=== PATIENT | male | born 1945 | race Caucasian/White ===

== ENCOUNTER 2017-12-25 07:32 | Outpatient (CLI) | payer MEDICARE, OTHER ==
[~2017-12-25] VITALS: Ht 188 cm; Wt 100.0 kg
--- NOTE | ~2017-12-25 | HEMODYNAMI ---
PATIENT:KINDRA PEREZ MEDICAL RECORD: [id number] : 47 LOCATION:DY[facility]iraCAT ADMISSION DATE: 12/25/17 Generatedon:12/25/20179:35 Patient name: KINDRA PEREZ Patient #: [id number] SSN: : 1945 Date of study: 12/25/2017 Page: Of Hemodynamic Procedure Report Patient Data Patient Demographics Procedure consent was obtained First Name: KINDRA Gender: Male Last Name: ANA : 1945 Middle Initial: ABILIO Age: 72 year(s) Patient #: [id number] Race: Unknown Additional ID: [id number] Contact details Address: [address] [place] [address] DRIVE [place]: [place] [facility] Zip code: [address] Past Medical History Allergies: No known allergies Admission Admission Data Admission Date: 12/25/2017 Admission Time: 7:32 Height (in.): 6.2 BSA: 0.38 (m2) Height (cm.): 15.75 BMI: 4115.26 (kg/m2) Weight (lbs.): 225 Weight (kg.): 102.06 Procedure Procedure Types Cath Procedure Diagnostic Procedure C [facility] w/Coronaries FFR/IVUS Intra-Coronary IVUS Initial Sedation Charges Moderate Sedation up to 15 minutes PCI Procedure Coronary Stent Coronary Stent Initial Procedure Description Procedure Date Procedure Date: 12/25/2017 Procedure Start Time: 9:09 Procedure End Time: 9:32 Procedure Staff Name Function Scooter Plata MD Performing Physician Nikki Monroy RT Monitor Chalo Sevilla RT Scrub Phil Mckeon RN Nurse Procedure Data Cath Procedure Fluoroscopy Diagnostic fluoroscopy Total fluoroscopy Time: 8.8 time: 8.8 min min Diagnostic fluoroscopy Total fluoroscopy dose: dose: 1546 mGy 1546 mGy Contrast Material Contrast Material Type Amount (ml) Isovue 370 121 Entry Location Entry Primary Successful Side Size Upsize Upsize Entry Closure Barrera ccessful Closure Location (Fr) 1 (Fr) 2 (Fr) Remarks Device Remarks Radial Right 6 Fr Mechanical artery Short Compression Estimated blood loss: 10 ml Diagnostic catheters Device Type Used For End Catheter Placement DIAGNOSTIC [place] 110cm 5 Procedure Fr catheter ([id number]) Procedure Complications No complications Procedure Medications Medication Administration Route Dosage 0.9% NaCl I.V. 100 ml/hr Oxygen etCO2 Nasal cannula 2 l/min Heparin Flush Bag added to field 2 bags (1000units/500ml NS) Lidocaine 2% added to field 20 Radial Cocktail added to field 1 syringe (Verapomil 2mg/Nitro 400mcg/Heparin 1500units) Versed I.V. 2 mg Fentanyl I.V. 100 mcg Heparin Bolus I.V. 4000 units Hemodynamics Rest BSA: 0.38 (m2) O2 Consumption: Estimated: 41.79 (ml/min) O2 Consumption indexed: Estimated:109.97 (ml/min/m) Heart Rate: 55 (bpm) Snapshots Pre Cath Intra NCS Post Cath Vital Signs Time Heart Resp SPO2 etCO2 NIBP Rhythm Pain Sedation Rate (ipm) (%) (mmHg) (mmHg) Status Level (bpm) 9:04:26 55 19 97 35.4 126/82(99) NSR 0 (11) 10(A) , No pain 9:09:02 57 17 96 36.1 114/76(95) NSR 0 (11) 10(A) , No pain 9:13:37 63 18 92 33.1 103/68(82) NSR 0 (11) 10(A) , No pain 9:18:09 61 14 97 16.5 107/64(80) NSR 0 (11) 10(A) , No pain 9:22:46 55 13 96 35.3 97/60(73) NSR 0 (11) 10(A) , No pain 9:27:18 53 14 98 36.1 102/60(76) NSR 0 (11) 10(A) , No pain 9:31:52 55 19 98 27 103/65(83) NSR 0 (11) 10(A) , No pain Medications Time Medication Route Dose Verified Delivered Reason Note s Effectiveness by by 9:02:54 0.9% NaCl I.V. 100 Phil Phil Per physician ml/hr Mike Mckeon RN RN 9:03:04 Oxygen etCO2 2 l/min Phil Phil Per physician Nasal Mike Mckeon cannula RN RN 9:03:14 Heparin Flush added 2 bags Phil Phil used for Bag to Mike Mckeon procedure (1000units/500ml field RN RN NS) 9:03:25 Lidocaine 2% added 20ml Phil Phil for local to vial Lorigan Mike anesthetic field RN RN 9:03:35 Radial Cocktail added 1 Phil Phil used for (Verapomil to syringe Lorjude Mckeon procedure 2mg/Nitro field RN RN 400mcg/Heparin 1500units) 9:07:29 Versed I.V. 2 mg Phil Phil for sedation Mike Mckeon RN RN 9:07:36 Fentanyl I.V. 100 mcg Phil Phil for sedation Mike Mckeon RN RN 9:16:52 Heparin Bolus I.V. 4000 Phil Phil for units Felipaigan Mike anticoagulation RN salt refiner Log Time Note 8:45:12 Signed procedure consent form obtained from patient. 8:45:15 Time tracking: Regular hours (M-F 7:00 - 5:00) 8:45:20 Plan of Care:Hemodynamics will remain stable., Cardiac rhythm will remain stable., Comfort level will be maintained., Respiratory function will remain adequate., Patient/ family verbilizes understanding of procedure., Procedure tolerated without complication., Recovers from procedure without complications.. 8:46:02 Patient allergic to No known allergies 8:46:34 Phil Mckeon RN sent for patient. Start room use. 8:48:10 Patient Height : 6.2 inches 8:48:12 Patient Weight : 225 lbs 8:51:47 Patient received from Pre/Post Procedure Room to CCL 1 Alert and oriented. Tansferred to table in Supine position. 8:51:48 Warm blankets applied, and mara hugger turned on for patient comfort. 8:51:48 Correct patient and procedure confirmed by team. 8:51:49 ECG and BP/O2 sat monitors applied to patient. 9:02:54 0.9% NaCl 100 ml/hr I.V. was administered by Phil Mckeon RN; Per physician; 9:03:04 Oxygen 2 l/min etCO2 Nasal cannula was administered by Phil Mckeon RN; Per physician; 9:03:14 Heparin Flush Bag (1000units/500ml NS) 2 bags added to field was administered by Phil Mckeon RN; used for procedure; 9:03:25 Lidocaine 2% 20ml vial added to field was administered by Phil Mckeon RN; for local anesthetic; 9:03:35 Radial Cocktail (Verapomil 2mg/Nitro 400mcg/Heparin 1500units) 1 syringe added to field was administered by Phil Mckeon RN; used for procedure; 9:03:40 Vital chart was started 9:05:50 Baseline sample Acquired. 9:05:53 Rhythm: sinus bradycardia 9:05:54 Full Disclosure recording started 9:06:03 H&P Date Dictated: 12/02/2017 Within 30 days and on chart., H&P Addendum completed by physician on day of procedure. (MUST COMPLETE FOR ALL OUTPATIENTS). 9:06:03 Pre-procedure instructions explained to patient. 9:06:04 Pre-procedure instructions explained to patient. 9:06:04 Pre-op teaching completed and patient verbalized understanding. 9:06:06 Family in patients room. 9:06:08 Is the patient allergic to Iodine/contrast media? No. 9:06:11 Is patient on blood thinner?Yes 9:06:13 ACC The patient was administered the following blood thiners within the last 24 hours: ACCPlavix 9:06:15 Patient diabetic? No. 9:06:18 Previous problem with sedation/anesthesia? No ? 9:06:19 Snore? Yes 9:06:20 Sleep apnea? No 9:06:21 Deviated septum? No 9:06:22 Opens mouth fully? Yes 9:06:22 Sticks out tongue? Yes 9:06:24 Airway obstruction? No ? 9:06:27 Dentures? No ? 9:06:31 Modified Silvino's test Ulnar < 7 seconds 9:06:32 Patient pain scale 0/10 ?. 9:06:51 IV patent on arrival in left wrist with 0.9% NaCl at KVO. 9:06:59 Right Radial & Right Groin area was prepped with chlora-prep and draped in sterile fashion 9:07:00 Alarms reviewed by Eloise Mauro 9:07:00 Sharps counted by scrub and verified by Keke 9:07:01 --------ALL STOP TIME OUT------ 9:07:01 Final Timeout: patient, procedure, and site verified with staff and physician. All members of the team are in agreement. 9:07:04 Right Radial & Right Groin site verified by team. 9:07:07 Physical assessment completed. ASA score P 2 - A patient with mild systemic disease as per Scooter Plata MD. 9:07:09 Sedation plan: IV Moderate Sedation Medication:Versed, Fentanyl 9:07:23 Zero performed for pressure channel P1 9:07:27 Use device set Radial Dx or PCI 9:07:28 ACIST Syringe (67135) opened to sterile field. 9:07:29 Versed 2 mg I.V. was administered by Phil Mckeon RN; for sedation; 9:07:29 ACIST Hand Control (02919) opened to sterile field. 9:07:30 ACIST Manifold (27038) opened to sterile field. 9:07:35 Bag Decanter (2002S) opened to sterile field. 9:07:36 Fentanyl 100 mcg I.V. was administered by Phil Mckeon RN; for sedation; 9:07:36 Medline Cath Pack ([id number]) opened to sterile field. 9:07:37 DIAGNOSTIC WIRE .035 260cm J wire (332845) opened to sterile field. 9:07:38 MBrace Wrist Support ([id number]) opened to sterile field. 9:07:40 SHEATH 6Fr Prelude Radial ([id number]) opened to sterile field. 9:09:27 Tegaderm 4 x 4 (1626W) opened to sterile field. 9:09:35 Procedure started. 9:09:43 Local anesthetic to right radial artery with Lidocaine 2% by Scooter Plata MD.INITIAL ACCESS ONLY 9:10:57 A 6 Fr Short sheath was inserted into the Right Radial artery 9:11:03 A DIAGNOSTIC [place] 110cm 5 Fr catheter (273337) was advanced over the wire and used for Procedure. 9:11:49 LV gram done using NORIEGA 9:11:51 Injector settings: Ml/sec: 7, Volume: 15, 9:12:24 EF : 60 % 9:13:52 RCA angiography performed. 9:13:55 LCA angiography performed. 9:14:07 Catheter exchanged over wire. 9:14:12 INFLATOR Merit Tumbiepak (GZ2982) opened to sterile field. 9:14:20 CHOICE PT Extra Support J 300cm guide wire (1123859I9) opened to sterile field. 9:16:07 GUIDE 6FR AR 2.0 catheter (RH8UN16) opened to sterile field. 9:16:17 6 Fr AR2 guide catheter was inserted over the wire 9:16:48 CHOICE ES 300 wire advanced. 9:16:52 Heparin Bolus 4000 units I.V. was administered by Phil Mckeon RN; for anticoagulation; 9:21:42 Wire removed. 9:21:51 NEW CHOICE ES 300 9:21:54 CHOICE PT Extra Support J 300cm guide wire ([id number]) opened to sterile field. 9:22:09 CHOICE ES 300 wire advanced. 9:25:37 The EMERGE OTW 1.5 x 15 balloon ([id number]) was advanced and then removed because of failure to cross lesion 9:25:45 [place] IVUS Catheter (91541K) opened to sterile field. 9:27:19 IVUS catheter advanced over wire. 9:27:29 IVUS pass to RCA lesion performed. 9:27:33 IVUS catheter removed over wire. 9:28:39 Place stent Inflation Number: 1 A AJ OTW 3.5 x 38 stent ([id number]) was prepped and advanced across the Dist RCA. The stent was deployed at 19 JEFFREY for 0:10 (min:sec). 9:29:11 Stent catheter was removed intact over wire. 9:29:12 Wire removed. 9:29:13 Guide catheter removed. 9:29:31 TR BAND Standard ([id number]) opened to sterile field. 9:29:36 Procedure ended.(Physican Out) 9:31:01 Sheath removed intact; hemostasis achieved with Mechanical Compression to the Right Radial artery. 9:31:06 Fluoroscopy time 08.80 minutes. 9:31:10 Fluoroscopy dose: 1546 mGy 9:31:10 Flurop Dose total: 1546 9:31:14 Contrast amount:Isovue 370 121ml. 9:31:16 Sharps counted by scrub and verified by R.N. 9:31:18 TR band inflated with 10cc of air. 9:31:22 Post-procedure physical assessment completed. ASA score P 2 - A patient with mild systemic disease as per Scooter Plata MD. 9:31:25 Post procedure rhythm: unchanged. 9:31:27 Estimated blood loss: 10 ml 9:31:29 Post procedure instruction explained to patient.Patient verbalizes understanding. 9:31:29 Patient needs reinforcement of post procedure teaching. 9:32:14 Procedure type changed to Cath procedure, Diagnostic procedure, LHC, LHC w/Coronaries, FFR/IVUS, Intra-Coronary IVUS Initial, Sedation Charges, Moderate Sedation up to 15 minutes, PCI procedure, Coronary Stent, Coronary Stent Initial 9:32:41 Procedure and supply charges have been captured, reviewed, submitted and are correct. 9:32:43 Procedure Complication : No complications 9:32:46 Vital chart was stopped 9:32:46 See physician's report for complete and final results. 9:32:48 Report given to Pre/Post Procedure Room. 9:32:50 Patient transfered to Pre/Post Procedure Room with Bed. 9:32:52 Procedure ended. 9:32:52 Full Disclosure recording stopped 9:32:57 End room use (Document Last) Intervention Summary Intervention Notes Time ActionType Lesion and Equipment Action# Pressure Duration Attributes Used 9:25:37 Discard EMERGE OTW Balloon 1.5 x 15 balloon ([id number]) 9:28:39 Place stent Dist RCA AJ OTW 3.5 1 19 00:10 x 38 stent ([id number]) Device Usage Item Name Manufacture Quantity Catalog Number Hospital Part Current Minimal Lot# / Charge Number Stock Stock Serial# Code ACIST Syringe Acist 1 96758 795375 232490 401169 20 (42432) Medical Systems Inc ACIST Hand Acist 1 66446 945181 906663 930829 5 Control (23396) [employer] Inc ACIST Manifold Acist 1 25864 549878 678619 739429 5 (49423) Medical Systems Inc Bag Decanter Microtek 1 2001S 214666 30629 246513 5 (2001S) Medical Inc. Medline Cath Cardinal 1 [id number] 919562 29104 697276 5 [facility] ([id number]) DIAGNOSTIC WIRE St Blu 1 916814 812234 482453 649726 30 .035 260cm J wire (855728) MBrace Wrist Advanced 1 140-0250-00 212610 63288 330562 5 Support Vascular ([id number]) Dynamics SHEATH 6Fr Merit 1 [id number] 088666 373593 311431 5 Prelude Radial Medical ([id number]) Tegaderm 4 x 4 3M 1 1626W 918088 848876 104425 5 (1626W) DIAGNOSTIC Terumo 1 405013 532058 637691 235239 5 [place] 110cm 5 Fr catheter (460720) INFLATOR Merit Merit 1 NT2395 624744 142771 701708 15 BasixEverlaterinTimetric Medical (EI8993) CHOICE PT Extra [place] 2 [id number] 919024 441275 825183 5 Support J 300cm Scientific guide wire (2388590V3) GUIDE 6FR AR Medtronic 1 [id number] 196405 47739 239489 1 2.0 catheter (VZ0IF62) EMERGE OTW 1.5 [place] 1 [id number] 213177 691752 640526 5 [id number] x 15 balloon Scientific ([id number]) [place] 1 90981D 323926 124859 907858 8 [place] IVUS Catheter (99095D) AJ OTW 3.5 x Medtronic 1 [id number] 559983 0845313 511881 5 [id number] 38 stent ([id number]) TR BAND Terumo 1 [id number] 134554 859945 484530 40 Standard ([id number]) Signature Audit [place] Stage Time Signature Unsigned Intra-Procedure 12/25/2017 Nikki Monroy 9:35:23 AM RT(R) Signatures Monitor : Nikki Monroy Signature : RT Date : Time : [facility] [address] [place] [address]
--- NOTE | ~2017-12-25 | OP ---
PATIENT NAME: KINDRA PEREZ MEDICAL RECORD: [id number] :47 LOCATION:D.CAT ADMISSION DATE: SURGEON: KULDIP YOUNG MD DATE OF OPERATION: 12/25/2017 PROCEDURES: 1. PTCA stent RCA. 2. Intravascular ultrasound RCA. 3. Left heart catheterization. 4. Selective coronary angiography. 5. Left ventriculogram. INDICATION: Angina and coronary artery disease. PROCEDURE IN DETAIL: After informed consent was obtained and after a detailed explanation of risks, benefits as well as alternative therapies, the patient elected to proceed with angiogram and angioplasty. The right radial area was prepped and draped in normal sterile fashion. Right radial artery was cannulated via modified Seldinger technique with placement of 6-Malay sheath. All catheters exchanged through this sheath. FINDINGS: The left ventriculogram was performed in standard 30-degree NORIEGA view reveals preserved cardiac wall motion, ejection fraction 50%. SELECTIVE CORONARY ANGIOGRAPHY: 1. Left main has no significant angiographic disease. 2. Left anterior descending has a long area of 80+ percent stenosis proximally. 3. The left circumflex has moderate irregularities. 4. The right coronary artery has a greater than 70% stenosis throughout the mid distal portion of the vessel confirmed by intravascular ultrasound. The PLV is a chronic total occlusion. PTCA STENT OF THE RCA. We attempted to cross the PLV total occlusion; however, no wire would cross this. We turned our attention to the distal RCA and stented this with a 3.5 x 38 mm [place] stent. Result was 0% residual stenosis. OVERALL IMPRESSION: Successful percutaneous transluminal coronary angioplasty stent of the right coronary artery going from greater than 70% initial stenosis to 0% residual. PLAN: PTCA stent of the LAD in the near future. TRANSINT:[id number] Voice Confirmation ID: [id number] DOCUMENT ID: [id number] KULDIP YOUNG MD at 1218 CC: [id number] DICTATION DATE: 12/25/17 0933 DIGITAL ASSOCIATE MEDIA DIRECTOR: 12/25/17 1241 DEP CLI 12/25/17 [address] [place] [address]
[2017-12-25] MEDS ORDERED: PLAVIX75 MG PO (08:01)
[2017-12-25] MEDS ORDERED: DIOVAN HCT 320/1 TA2 PO (08:02)
[2017-12-25 08:12] VITALS: BP 140/84; Ht 188 cm; Wt 100.0 kg
[2017-12-25 08:33] LABS: BASOPHILS 0.2 % (0-2); EOSINOPHILS 4.4 % (0-7); HEMATOCRIT 34.5 % (42.0-54.0); HEMOGLOBIN 12.2 g/dL (13.5-17.5); IMMATURE GRANULOCYTES 0.2 % (0-5); LYMPHOCYTES 23.1 % (15-50); MCH 33.4 pg (26.0-34.0); MCHC 35.4 g/dL (31.0-37.0); MCV 94.5 fL (80.0-100.0); MEAN PLATELET VOLUME 9.9 fL (7.4-10.4); MONOCYTES 7.5 % (2-11); NEUTROPHILS 64.6 % (40-80); PLATELET COUNT 184 10x3/uL (130-400); RBC 3.65 10x6/uL (4.20-6.10); RDW 13.1 % (11.5-14.5); WBC 5.5 10x3/uL (4.8-10.8)
[2017-12-25 09:06] LABS: CALC OSMOLALITY 280 mosm/kg (275-300); CALCIUM 9.2 mg/dL (8.5-10.1); CARBON DIOXIDE 28.4 mmol/L (21.0-32.0); CHLORIDE - SERUM 103 mmol/L (98-107); GLUCOSE 97 mg/dL (74-106); POTASSIUM - SERUM 3.7 mmol/L (3.5-5.1); SODIUM 139 mmol/L (136-145); UREA NITROGEN 22 mg/dL (7-18); eGFR NON AFRICAN AMERICAN 78 mL/min (90-120)
[2017-12-25] MEDS ORDERED: BAYER CHEWABLE81 MG PO (09:41)
== END 2017-12-25 13:30 | disposition home or self-care (01) ==
LOC: D.CATH 07:32
PROVIDERS: Internal Medicine Interventional Cardiology
DX: I25.119 Atherosclerotic heart disease of native coronary artery with unspecified angina pectoris (principal); I25.82 Chronic total occlusion of coronary artery; Z01.812 Encounter for preprocedural laboratory examination
CPT/HCPCS: 93458; 92978; C9600

== ENCOUNTER 2017-12-27 07:28 | Outpatient (CLI) | payer MEDICARE, OTHER ==
[~2017-12-27] VITALS: Ht 188 cm; Wt 100.0 kg
--- NOTE | ~2017-12-27 | HP ---
PATIENT: KINDRA ACKERMAN MEDICAL RECORD: [id number] ACCOUNT: [id number] LOCATION:IAN : 47 ADMISSION DATE: 12/27/17 HISTORY AND PHYSICAL EXAMINATION DATE OF SERVICE: 12/27/2017. INDICATION: 1. Angina. 2. Coronary artery disease. 3. Recent percutaneous transluminal coronary angioplasty stent of the right coronary artery with concomitant disease, LAD. 4. Hypertension. 5. Hyperlipidemia. HISTORY OF PRESENT ILLNESS: Mr. Ackerman presents with anginal symptomatology, found to have severe 2-vessel coronary artery disease of the RCA and LAD, underwent successful PTCA stent of the RCA. He is now brought back for transcatheter revascularization of the LAD. REVIEW OF SYSTEMS: The patient reports easy bruising but reports no swollen glands. The patient reports no fever, no night sweats, no significant weight gain, no significant weight loss. No significant exercise tolerance. The patient reports no dry eyes, no irritation, no vision change. Patient reports no difficulty hearing and no ear pain. Patient reports no frequent nose bleeds or nose and sinus problems. Patient reports on arm pain on exertion. No shortness of breath while lying down. No history of heart murmur. Patient reports no cough, no wheezing or coughing up blood. Patient reports no abdominal pain, no vomiting. Normal appetite. No diarrhea and not vomiting blood. No nausea and no constipation. Patient reports no incontinence. No difficulty urinating. No hematuria. No increased frequency. Patient reports no muscle aches. No weakness, no arthralgias, no back pain. No swelling of the extremities. Patient reports no abnormal mole, no jaundice, no rashes. Reports no loss of consciousness. No weakness and no numbness. No seizures, dizziness, or headaches. The patient reports no depression, no sleep disturbance, feeling safe in a relationship and no alcohol abuse. Patient reports on fatigue. Reports no runny nose or sinus pressure. No itching, no hives, and no frequent sneezing. PHYSICAL EXAMINATION: GENERAL APPEARANCE: Well-nourished, well-developed, appears stated age. Level of distress, comfortable. PSYCHIATRIC: Mental status, alert, normal affect. Orientation, oriented to time, place and person. EYES: Lids and conjunctiva, noninjected. No discharge, no pallor. ENT: Lips, teeth, gums, normal dentition. Oropharynx, no cyanosis, no pallor. NECK: Carotid arteries, bilateral normal upstroke, no bruits, no thrills. JUGULAR VEINS: No jugular venous pressure or distention. CERVICAL LYMPH NODES: Nontender, nonenlarged. THYROID: Not enlarged. Nontender. No nodules. LUNGS: Respiratory effort, unlabored. CHEST: Normal curvature. No thoracic deformity. No chest wall tenderness. Percussion, resonant. Auscultation, clear. No wheezes, no rales, no rhonchi. CARDIOVASCULAR: Precordial exam, nondisplaced. No heaves or pericardial thrills. Rate and rhythm, regular. Heart sounds, normal S1, normal S2. No S3, HISTORY AND PHYSICAL [id number] KINDRA ACKERMAN no gallop, no rub. Systolic murmur, not heard. Diastolic murmur, not heard. EXTREMITIES: No cyanosis, no edema. Peripheral pulses, full and equal in all extremities, except as noted. No bruits appreciated. ABDOMEN: Soft, nondistended. Normal aorta. No bruit. Nontender. No masses. Liver, nontender, no hepatomegaly. Spleen, nontender, no splenomegaly. MUSCULOSKELETAL: No joint tenderness. No joint swelling. No erythema. NEUROLOGICAL: Normal gait, normal strength, normal tone. SKIN: Warm and dry. OVERALL IMPRESSION: Anginal symptomatology with significant disease of the left anterior descending. We will proceed with percutaneous transluminal coronary angioplasty stent of the LAD. TRANSINT:[id number] Voice Confirmation ID: [id number] DOCUMENT ID: [id number] KULDIP YOUNG MD at 1711 CC: [id number] DICTATION DATE: 12/27/17 1019 POWDER EXPERT: 12/27/17 1057 DEP CLI 12/27/17 [place] [id number] [place] [address]
--- NOTE | ~2017-12-27 | OP ---
PATIENT NAME: KINDRA PEREZ MEDICAL RECORD: [id number] :47 LOCATION:D.CAT ADMISSION DATE: SURGEON: KULDIP YOUNG MD DATE OF OPERATION: 12/27/2017 PROCEDURES: 1. PTCA stent LAD. 2. Selective coronary angiography. INDICATION: Angina and coronary artery disease. PROCEDURE IN DETAIL: After informed consent was obtained and after a detailed description of risks, benefits as well as alternative therapies, the patient elected to proceed with angiogram and angioplasty. The right radial area was prepped and draped in a normal sterile fashion. Right radial artery was cannulated via modified Seldinger technique with placement of 6-[place]zer[place] sheath. All catheters exchanged through this sheath. FINDINGS: The left anterior descending has 80+ percent stenosis proximally. 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 This is not a true lesion. The proximal vessel was addressed with a 3.5 x 22 mm [place] taken to 21 atmospheres. Result was 0% residual stenosis. OVERALL IMPRESSION: Successful percutaneous transluminal coronary angioplasty stent of the left anterior descending going from 80+ percent initial stenosis to 0% residual. TRANSINT:[id number] Voice Confirmation ID: [id number] DOCUMENT ID: [id number] KULDIP YOUNG MD at 1711 CC: [id number] DICTATION DATE: 12/27/17 1020 EXPLOSIVES WORKER: 12/27/17 1111 DEP CLI 12/27/17 [facility] [address] [place] [address]
--- NOTE | ~2017-12-27 | HEMODYNAMI ---
PATIENT:KINDRA PEREZ MEDICAL RECORD: [id number] : 47 LOCATION:[facility] ADMISSION DATE: 12/27/17 Generatedon:12/27/201710:24 Patient name: KINDRA PEREZ Patient #: [id number] : 1945 Date of study: 12/27/2017 Page: Of Hemodynamic Procedure Report Patient Data Patient Demographics Procedure consent was obtained First Name: KINDRA Gender: Male Last Name: ANA : 1945 [facility] Initial: R Age: 72 year(s) Patient #: [id number] Race: SSN: [id number] Additional ID: [id number] Contact details [address]: [address] [place] [address] [address]IVE State: [place] City: [place] Zip code: [address] Past Medical History Allergies: No known allergies Admission Admission Data Admission Date: 12/27/2017 Admission Time: 7:28 Arrival Date: 12/20/2017 Arrival Time: 9:30 Admit Source: Other Insurance Payor: Medicare Lab Results Lab Result Date: 12/27/2017 Lab Result Time: 0:00 Biochemistry Name Units Result Min Max BUN mg/dl 16 --(---*)-- 7 18 Creatinine mg/dl 1.1 --(--*-)-- 0.6 1.3 CBC Name Units Result Min Max Hemoglobin g/dl 13.1 -*(----)-- 13.5 17.5 Procedure Procedure Types Cath Procedure PCI Procedure Coronary Stent Coronary Stent Initial Procedure Description Procedure Date Procedure Date: 12/27/2017 Procedure Start Time: 10:10 Procedure End Time: 10:19 Procedure Staff Name Function Scooter Plata MD Performing Physician Keyla Felix RT Monitor Janessa Hightower RT Scrub Israel Hinton RN Nurse Procedure Data Cath Procedure Fluoroscopy Diagnostic fluoroscopy Total fluoroscopy Time: 1.4 time: 1.4 min min Diagnostic fluoroscopy Total fluoroscopy dose: 197 dose: 197 mGy mGy Contrast Material Contrast Material Type Amount (ml) Isovue 300 30 Entry Location Entry Primary Successful Side Size Upsize Upsize Entry Closure Barrera ccessful Closure Location (Fr) 1 (Fr) 2 (Fr) Remarks Device Remarks Radial Right 6 Fr Mechanical artery Short Compression Estimated blood loss: 5 ml Procedure Complications No complications Procedure Medications Medication Administration Route Dosage Oxygen NC 2 l/min Lidocaine 2% added to field 20 Heparin Flush Bag added to field 2 bags (1000units/500ml NS) 0.9% NaCl I.V. 100 ml/hr Radial Cocktail I.A. 1 syringe (Verapomil 2mg/Nitro 400mcg/Heparin 1500units) Versed I.V. 1 mg Fentanyl I.V. 50 mcg Heparin Bolus I.V. 4000 units Versed I.V. 1 mg Fentanyl I.V. 50 mcg Hemodynamics Rest HGB: 13.1 (g/dl) Heart Rate: 59 (bpm) Snapshots Pre Cath Intra NCS Post Cath Vital Signs Time Heart Resp SPO2 etCO2 NIBP Rhythm Pain Sedation Rate (ipm) (%) (mmHg) (mmHg) Status Level (bpm) 10:01:35 58 14 96 20.2 122/85(98) NSR 0 (11) 10(A) , No pain 10:05:41 58 15 98 32.2 114/81(96) NSR 0 (11) 10(A) , No pain 10:09:49 57 14 96 26.9 115/71(86) NSR 0 (11) 10(A) , No pain 10:14:01 64 13 94 29.2 102/62(80) NSR 0 (11) 9(A) , No pain 10:18:05 65 15 95 23.2 91/63(73) NSR 0 (11) 9(A) , No pain 10:22:14 60 16 95 0 104/60(72) NSR 0 (11) 10(A) , No pain Medications Time Medication Route Dose Verified Delivered Reason Note s Effectiveness by by 10:08:41 Oxygen NC 2 l/min Scooter Wood used for Boni Hinton RN procedure 10:08:47 Lidocaine 2% added 20ml Scooter Helms used for to vial Boni Plata MD procedure field 10:08:53 Heparin Flush added 2 bags Scooter Helms used for Bag to Boni Plata MD procedure (1000units/500ml field NS) 10:09:01 0.9% NaCl I.V. 100 Scooter Wood Per physician ml/hr Boni Hinton RN 10:09:12 Radial Cocktail I.A. 1 Scooter Helms for (Verapomil syringe Boni Plata MD vasodilation 2mg/Nitro 400mcg/Heparin 1500units) 10:11:24 Versed I.V. 1 mg Scooter Wood for sedation Boni Hinton RN 10:11:30 Fentanyl I.V. 50 mcg Scooter Bluntie for sedation Boni Hinton RN 10:13:45 Heparin Bolus I.V. 4000 Scooter Bluntie for veri fied units Boni Hinton RN anticoagulation with dr plata 10:15:56 Versed I.V. 1 mg Scooter Bluntie for sedation Boni Hinton RN 10:16:00 Fentanyl I.V. 50 mcg Scooter Bluntie for sedation Boni Hinton RN Procedure Log Time Note 9:42:15 Informed consent obtained and on chart 9:42:32 Admit Source: Other 9:42:34 Arrival Date: 12/20/2017 9:30:00 AM 9:42:48 Insurance Payor : Medicare 9:44:07 Lab Result : Hemoglobin 13.1 g/dl 9:44:07 Lab Result : Creatinine 1.1 mg/dl 9:44:07 Lab Result : BUN 16 mg/dl 9:44:13 Diagnostic Cath Status : Elective 9:44:36 Janessa HANKS(R) sent for patient. Start room use. 9:44:37 Time tracking: Regular hours (M-F 7:00 - 5:00) 9:44:42 Plan of Care:Hemodynamics will remain stable., Cardiac rhythm will remain stable., Comfort level will be maintained., Respiratory function will remain adequate., Patient/ family verbilizes understanding of procedure., Procedure tolerated without complication., Recovers from procedure without complications.. 9:50:39 Patient received from Pre/Post Procedure Room to CCL 2 Alert and oriented. Tansferred to table in Supine position. 9:50:40 Warm blankets applied, and mara hugger turned on for patient comfort. 9:50:40 Correct patient and procedure confirmed by team. 9:50:41 ECG and BP/O2 sat monitors applied to patient. 10:00:29 Vital chart was started 10:00:31 Baseline sample Acquired. 10:00:34 Rhythm: sinus rhythm 10:00:36 Full Disclosure recording started 10:00:40 H&P Date Dictated: 12/27/2017 Within 30 days and on chart., H&P Addendum completed by physician on day of procedure. (MUST COMPLETE FOR ALL OUTPATIENTS). 10:00:41 Pre-procedure instructions explained to patient. 10:00:42 Pre-op teaching completed and patient verbalized understanding. 10:00:43 Family in waiting room. 10:00:45 Patient NPO since Midnight. 10:00:47 Is the patient allergic to Iodine/contrast media? No. 10:00:48 Was the patient premedicated? No 10:00:53 Is patient on blood thinner?Yes 10:00:55 ACC The patient was administered the following blood thiners within the last 24 hours: ACCPlavix 10:00:57 Patient diabetic? No. 10:01:02 Previous problem with sedation/anesthesia? No ? 10:01:04 Snore? Yes 10:01:05 Sleep apnea? No 10:01:06 Deviated septum? No 10:01:06 Opens mouth fully? Yes 10:01:07 Sticks out tongue? Yes 10:01:09 Airway obstruction? No ? 10:01:16 Dentures? No ? 10:01:23 Pre procedure: right dorsailis pedis pulse 2+ Normal; easily identifiable; not easily obliterated 10:01:25 Pre procedure: left dorsailis pedis pulse 1+ Palpable, but thready & weak; easily obliterated 10:01:31 Modified Silvino's test Radial < 7 seconds 10:01:33 Patient pain scale 0/10 ?. 10:01:42 IV patent on arrival in left forearm with 0.9% NaCl at KVO. 10:01:45 Lab results completed and on chart. 10:01:50 Right Radial & Right Groin area was prepped with chlora-prep and draped in sterile fashion 10:01:51 Alarms reviewed by R. N. 10:01:51 Sharps counted by scrub and verified by R.N. 10:08:41 Oxygen 2 l/min NC was administered by Israel Hinton RN; used for procedure; 10:08:47 Lidocaine 2% 20ml vial added to field was administered by Scooter Plata MD; used for procedure; 10:08:53 Heparin Flush Bag (1000units/500ml NS) 2 bags added to field was administered by Scooter Plata MD; used for procedure; 10:09:01 0.9% NaCl 100 ml/hr I.V. was administered by Israel Hinton RN; Per physician; 10:09:12 Radial Cocktail (Verapomil 2mg/Nitro 400mcg/Heparin 1500units) 1 syringe I.A. was administered by Scooter Plata MD; for vasodilation; 10::35 Physician arrived 10::35 --------ALL STOP TIME OUT------ 10::36 Final Timeout: patient, procedure, and site verified with staff and physician. All members of the team are in agreement. 10:09:38 Right Radial & Right Groin site verified by team. 10:09:40 Physical assessment completed. ASA score P 2 - A patient with mild systemic disease as per Scooter Plata MD. 10:09:44 Sedation plan: IV Moderate Sedation Medication:Versed, Fentanyl 10:09:56 Procedure started. 10:10:01 Local anesthetic to right radial artery with Lidocaine 2% by Scooter Plata MD.INITIAL ACCESS ONLY 10:10:09 A 6 Fr Short sheath was inserted into the Right Radial artery 10:10:38 Use device set Radial Dx or PCI 10:10:40 ACIST Syringe (54751) opened to sterile field. 10:10:40 Medline Cath Pack ([id number]) opened to sterile field. 10:10:41 Bag Decanter () opened to sterile field. 10:10:41 DIAGNOSTIC WIRE .035 260cm J wire (790271) opened to sterile field. 10:10:42 ACIST Hand Control (99144) opened to sterile field. 10:10:43 ACIST Manifold (08144) opened to sterile field. 10:10:44 Tegaderm 4 x 4 (1626W) opened to sterile field. 10:10:44 MBrace Wrist Support ([id number]) opened to sterile field. 10:10:46 TR BAND Standard ([id number]) opened to sterile field. 10:10:48 SHEATH 6Fr Prelude Radial ([id number]) opened to sterile field. 10:11:24 Versed 1 mg I.V. was administered by Israel Hinton RN; for sedation; 10:11:30 Fentanyl 50 mcg I.V. was administered by Israel Hinton RN; for sedation; 10:11:36 Zero performed for pressure channel P1 10:13:40 GUIDE 6FR XBLAD 3.5 catheter (13579123) opened to sterile field. 10:13:45 Heparin Bolus 4000 units I.V. was administered by Israel Hinton RN; for anticoagulation; verified with dr plata 10:13:56 6 Fr xblad 3.5 guide catheter was inserted over the wire 10:14:32 CHOICE PT Extra Support 182cm wire ([id number]) opened to sterile field. 10:15:12 INFLATOR Merit BasixCompak (KJ0404) opened to sterile field. 10:15:20 choice pt wire advanced. 10:15:22 Wire advanced across lesion. 10:15:56 Versed 1 mg I.V. was administered by Israle Hinton RN; for sedation; 10:16:00 Fentanyl 50 mcg I.V. was administered by Israel Hinton RN; for sedation; 10:16:54 Place stent Inflation Number: 1 A AJ RX 3.0 x 22 stent ([id number]) was prepped and advanced across the Prox LAD. The stent was deployed at 21 JEFFREY for 0:10 (min:sec). 10:17:07 Stent catheter was removed intact over wire. 10:17:07 Wire removed. 10:17:07 Guide catheter removed. 10:18:10 Sheath removed intact; hemostasis achieved with Mechanical Compression to the Right Radial artery. 10:18:11 Procedure ended.(Physican Out) 10:18:50 Fluoroscopy time 01.40 minutes. 10:18:54 Flurop Dose total: 197 10:18:54 Fluoroscopy dose: 197 mGy 10:18:58 Contrast amount:Isovue 300 30ml. 10:19:00 Sharps counted by scrub and verified by R.N. 10:19:03 TR band inflated with 10cc of air. 10:19:04 Insertion/operative site no bleeding no hematoma. 10:19:15 Post right radial artery:stable 10:19:21 Post Procedure Pulses reassessed and unchanged 10:19:24 Post procedure rhythm: sinus rhythm 10:19:27 Estimated blood loss: 5 ml 10:19:29 Post procedure instruction explained to patient.Patient verbalizes understanding. 10:19:29 Patient needs reinforcement of post procedure teaching. 10:19:35 Procedure type changed to Cath procedure, PCI procedure, Coronary Stent, Coronary Stent Initial 10:19:36 Procedure and supply charges have been captured, reviewed, submitted and are correct. 10:19:40 Procedure Complication : No complications 10:19:42 Vital chart was stopped 10:19:43 See physician's report for complete and final results. 10:19:45 Report given to Pre/Post Procedure Room. 10:19:47 Patient transfered to Pre/Post Procedure Room with Stretcher. 10:19:49 Procedure ended. 10:19:49 Full Disclosure recording stopped 10:19:58 ACC-PCI Only Patient was given prescriptions, or instructed by Scooter Plata MD to start/continue the following medications upon discharge: Plavix 10:20:00 End room use (Document Last) Intervention Summary Intervention Notes Time ActionType Lesion and Equipment Used Action# Pressure Duration Attributes 10:16:54 Place stent Prox LAD AJ RX 3.0 x 1 21 00:10 22 stent ([id number]) Device Usage Item Name Manufacture Quantity Catalog Number Hospital Part Current Minimal Lot# / Charge Number Stock Stock Serial# Code ACIST Syringe Acist 1 47482 145830 712533 820743 20 (66040) Medical [employer] Medline Cath Cardinal 1 [id number] 919581 29518 746106 5 Pack Health ([id number]) Bag Decanter Microtek 1 2001S 325803 37687 765309 5 () Medical Inc. DIAGNOSTIC WIRE St Blu 1 983025 266167 616127 145010 30 .035 260cm J wire (417108) ACIST Hand Acist 1 76819 056783 965833 528302 5 Control (64975) Medical [employer] Inc ACIST Manifold Acist 1 30955 696769 974999 856497 5 (55310) Medical Systems Inc Tegaderm 4 x 4 3M 1 1626W 989991 361743 592265 5 (1626W) MBrace Wrist Advanced 1 140-0250-00 992675 16805 366664 5 Support Vascular ([id number]) Dynamics TR BAND Terumo 1 [id number] 196837 520352 837797 40 Standard ([id number]) SHEATH 6Fr Merit 1 [id number] 002857 506664 483694 5 Prelude Radial Medical ([id number]) GUIDE 6FR XBLAD Cardinal 1 [id number] 180964 294516 014571 10 3.5 catheter Health (30548260) CHOICE PT Extra Frohna 1 [id number] 490324 934787 649723 5 Support 182cm Scientific wire ([id number]) INFLATOR Merit Merit 1 NT0060 215408 902125 673582 15 BasixComwvMiniLuxe Medical ([id number]) AJ RX 3.0 x Medtronic 1 [id number] 317042 9261565 137940 5 [id number] 22 stent ([id number]) Signature Audit [place] Time Signature Unsigned Intra-Procedure 12/27/2017 Keyla Felix 10:24:45 AM RT(R) Signatures Monitor : Keyla Felix RT Signature : Date : Time : [place] [id number] [place], S[place] [id number]
[~2017-12-27 07:28] MED LIST: BAYER CHEWABLE81 MG PO; DIOVAN HCT 320/1 TA2 PO; PLAVIX75 MG PO
[2017-12-27 08:18] LABS: BASOPHILS 0.2 % (0-2); EOSINOPHILS 3.5 % (0-7); HEMATOCRIT 37.5 % (42.0-54.0); HEMOGLOBIN 13.1 g/dL (13.5-17.5); IMMATURE GRANULOCYTES 0.2 % (0-5); LYMPHOCYTES 22.8 % (15-50); MCH 33.2 pg (26.0-34.0); MCHC 34.9 g/dL (31.0-37.0); MCV 94.9 fL (80.0-100.0); MONOCYTES 6.3 % (2-11); PLATELET COUNT 181 10x3/uL (130-400); RBC 3.95 10x6/uL (4.20-6.10); RDW 12.9 % (11.5-14.5); WBC 5.7 10x3/uL (4.8-10.8)
[2017-12-27 08:20] VITALS: BP 137/83; Ht 188 cm; Wt 100.0 kg
[2017-12-27 08:32] LABS: ANION GAP 11.6 mmol/L (8-16); CALCIUM 9.6 mg/dL (8.5-10.1); CARBON DIOXIDE 30.1 mmol/L (21.0-32.0); CREATININE - SERUM 1.1 mg/dL (0.6-1.3); POTASSIUM - SERUM 3.7 mmol/L (3.5-5.1)
== END 2017-12-27 14:38 | disposition home or self-care (01) ==
LOC: D.CATH 07:28
PROVIDERS: Internal Medicine Interventional Cardiology
DX: I25.119 Atherosclerotic heart disease of native coronary artery with unspecified angina pectoris (principal); Q24.5 Malformation of coronary vessels; Z95.5 Presence of coronary angioplasty implant and graft; I10 Essential (primary) hypertension; E78.5 Hyperlipidemia, unspecified; Z01.812 Encounter for preprocedural laboratory examination

== ENCOUNTER → 2018-10-06 11:11 | Outpatient (CLI) | payer MEDICARE ==
[2017-12-27 08:20] VITALS: BMI 28.3
[2018-10-06 12:14] LABS: CHOL - HDL RATIO 3.6 ratio (2.3-4.9); LDL-HDL RATIO 2.2 ratio (1.5-3.5)
== END | disposition home or self-care (01) ==
LOC: D.LABREF 11:11
PROVIDERS: ATTEND Internal Medicine Interventional Cardiology
DX: I25.10 Atherosclerotic heart disease of native coronary artery without angina pectoris (principal)

== ENCOUNTER 2019-06-12 11:16 | Observation (INO) | payer MEDICARE, BC ==
[~2019-06-12] VITALS: Ht 188 cm; Wt 102.1 kg
[2019-06-12] MEDS ORDERED: NORVASC5 MG PO (11:24)
[2019-06-12 12:25] LABS: APPEARANCE HAZY (CLEAR); BACTERIA FEW /hpf (NEGATIVE); BILIRUBIN NEGATIVE (NEGATIVE); CALCIUM OXALATE CRYSTALS 0-5 /hpf (NONE SEEN); COLOR YELLOW (YELLOW); EPITHELIAL CELLS OCC /hpf (0-5); GLUCOSE NEGATIVE (NEGATIVE); KETONE NEGATIVE (NEGATIVE); MUCUS <1+ /lpf (NONE SEEN); NITRITE NEGATIVE (NEGATIVE); PROTEIN 1+ mg/dL (NEGATIVE); SPECIFIC GRAVITY 1.025 (1.005-1.020); UROBILINOGEN NORMAL (NORMAL)
[2019-06-12 12:26] LABS: RED CELLS - URINE NONE SEEN /hpf (0-5); WHITE CELLS - URINE NSEEN /hpf (NEGATIVE)
[2019-06-12 12:54] VITALS: BP 148/93
[2019-06-12 13:00] VITALS: BP 134/85
[2019-06-12 13:10] LABS: CALC OSMOLALITY 279 mosm/kg (275-300); CALCIUM 8.7 mg/dL (8.5-10.1); CARBON DIOXIDE 30.6 mmol/L (21.0-32.0); CHLORIDE - SERUM 103 mmol/L (98-107); CREATININE - SERUM 0.8 mg/dL (0.6-1.3); GLUCOSE 113 mg/dL (74-106); POTASSIUM - SERUM 3.6 mmol/L (3.5-5.1); SODIUM 139 mmol/L (136-145); UREA NITROGEN 15 mg/dL (7-18); eGFR NON AFRICAN AMERICAN > 90 mL/min (90-120)
[2019-06-12 13:19] LABS: ALBUMIN 3.7 g/dL (3.4-5.0); ALKALINE PHOSPHATASE 101 U/L (46-116); ALT (SGPT) 39 U/L (10-68); AMYLASE - SERUM 37 U/L (25-115); BILIRUBIN - TOTAL 0.64 mg/dL (0.2-1.3); LIPASE 76 U/L (73-393); PROTEIN - SERUM 7.7 g/dL (6.4-8.2)
[2019-06-12 13:20] LABS: TROPONIN-I < 0.017 ng/mL (0.000-0.060)
[2019-06-12 13:41] LABS: BASOPHILS 0.1 % (0-2); EOSINOPHILS 0.5 % (0-7); HEMATOCRIT 42.8 % (42.0-54.0); HEMOGLOBIN 14.8 g/dL (13.5-17.5); IMMATURE GRANULOCYTES 0.3 % (0-5); LYMPHOCYTES 6.6 % (15-50); MCH 33.3 pg (26.0-34.0); MCHC 34.6 g/dL (31.0-37.0); MCV 96.2 fL (80.0-100.0); MEAN PLATELET VOLUME 10.6 fL (7.4-10.4); MONOCYTES 3.3 % (2-11); NEUTROPHILS 89.2 % (40-80); RBC 4.45 10x6/uL (4.20-6.10); WBC 10.5 10x3/uL (4.8-10.8)
[2019-06-12 14:16] LABS: PLATELET COUNT 219 10x3/uL (130-400)
--- NOTE | 2019-06-12 15:15 | NUR ---
RECEIVED TO ROOM 2229 VIA FROM ER. A/O X3. NO C/O AT THIS TIME. SKIN INTACT WTIHOUT REDNESS. DENIES NEEDS.
[2019-06-12 16:41] VITALS: BP 153/81; BMI 28.3
[2019-06-12 16:49] VITALS: BP 153/81
--- NOTE | 2019-06-12 19:00 | NUR ---
BEDSIDE REPORT RECEIVED AND CARE OF PATIENT ASSUMED. PT LYING IN SUPINE POSITION WATCHING TV. IV TO RIGHT FA PATENT WITH NS INFUSING AT 100 ML/HR. TELEMETRY IN PLACE PER ORDER. NPO STATUS IN PLACE PER ORDER. WILL MONITOR FOR NEEDS.
[2019-06-12 20:16] VITALS: BP 117/67
--- NOTE | 2019-06-12 21:10 | NUR ---
PLACED SCD'S PER ORDER.
--- NOTE | 2019-06-12 21:42 | NUR ---
HS MEDICATIONS GIVEN.
--- NOTE | 2019-06-12 22:30 | NUR ---
SURGEON CONSULTING ON PT AT THIS TIME. NEW ORDER FOR SMALL BOWEL SERIES IN AM PLACED.
[2019-06-13 00:46] VITALS: BP 117/90
--- NOTE | 2019-06-13 03:29 | NUR ---
PT HAD LARGE SOFT BM. SHOWERED AND ALL LINENS AND GOWN CHANGED.
[2019-06-13 05:29] LABS: BASOPHILS 0.2 % (0-2); EOSINOPHILS 4.7 % (0-7); HEMATOCRIT 37.8 % (42.0-54.0); HEMOGLOBIN 12.8 g/dL (13.5-17.5); IMMATURE GRANULOCYTES 0.2 % (0-5); LYMPHOCYTES 19.7 % (15-50); MCH 32.7 pg (26.0-34.0); MCHC 33.9 g/dL (31.0-37.0); MCV 96.7 fL (80.0-100.0); MEAN PLATELET VOLUME 10.5 fL (7.4-10.4); MONOCYTES 6.7 % (2-11); NEUTROPHILS 68.5 % (40-80); PLATELET COUNT 198 10x3/uL (130-400); RBC 3.91 10x6/uL (4.20-6.10); RDW 13.4 % (11.5-14.5)
[2019-06-13 05:31] VITALS: BP 139/77
[2019-06-13 05:48] LABS: CALC OSMOLALITY 287 mosm/kg (275-300); CARBON DIOXIDE 26.8 mmol/L (21.0-32.0); CHLORIDE - SERUM 109 mmol/L (98-107); CREATININE - SERUM 0.9 mg/dL (0.6-1.3); GLUCOSE 106 mg/dL (74-106); MAGNESIUM - SERUM 1.7 mg/dL (1.8-2.4); PHOSPHOROUS 2.1 mg/dL (2.5-4.9); POTASSIUM - SERUM 3.1 mmol/L (3.5-5.1); SODIUM 144 mmol/L (136-145); UREA NITROGEN 14 mg/dL (7-18); eGFR NON AFRICAN AMERICAN 88 mL/min (90-120)
--- NOTE | 2019-06-13 07:15 | NUR ---
PT LAYING IN BED WITH EYES OPEN, TALKING ON THE PHONE. NO S/S OF DISTRESS NOTED AT THIS TIME. DENIES ANY PAIN OR NEEDS AT THIS TIME, WILL CONT TO MONITOR.
[2019-06-13 08:57] VITALS: Ht 188 cm; Wt 102.1 kg
--- NOTE | 2019-06-13 10:35 | NUR ---
PER DR NIETO CANCEL US ABD COMPLETE ON 06/13 D/T PT ALREADY GIVEN BARIUM FOR SMALL BOWEL SERIES , THEREFORE US WILL BE NON DIAGNOSTIC D/T OBSCURRING BARIUM.
[2019-06-13 12:21] VITALS: BP 149/60
--- NOTE | 2019-06-16 07:18 | MORECARE ---
CASE MANAGEMENT DISCHARGE SUMMARY PATIENT: KINDRA PEREZ UNIT: [id number] ADM DATE: 06/12/19 AGE: 74 : 47 SEX: M ROOM/BED: D.2229 AUTHOR: ANA LITTLEJOHN PHYSICIAN: REFERRING PHYSICIAN: NAMITA NIETO MD DATE OF SERVICE: 06/16/19 Discharge Plan Patient Name: KINDRA PEREZ [facility] [facility] 1945 Planned Disposition: Anticipated Discharge Date: Discharge Date: 06/13/2019 Expected LOS: 0 Initial Reviewer: [email or web address] Initial Review Date: 06/16/2019 Generated: 06/16/19 8:18 am Coverage Notice Reviewer: [email or web address] - Kailyn Oviedo Notice Issued Date-Time: 06/12/2019 14:55 Notice Type: Medicare Outpatient Observation Notice Notice Delivered To: Family Member Relationship to Patient: Spouse Nail Maker Name: Delivery Method: HAND - Hand Delivered Va Days: Prior Verbal Notification: Recipient Understood Notice: Recipient Signature: Med Rec Note Co-signed by Attending: Coverage Notice Comment: Patient Name: KINDRA PEREZ Page [phone] at 0718 All edits/amendments must be made on the electronic document DICTATION DATE: 06/16/19717 DERMATOLOGY PHYSICIAN ASSISTANT: MAURO 06/16/19717 RPT#: [id number] DC DATE:06/13/19 STATUS: DIS IN [place] [address] [place] [address] END OF REPORT
== END 2019-06-13 18:10 | disposition home or self-care (01) ==
LOC: D.ER 11:16 → OBSVTIME 13:55 → D.MS 13:55
PROVIDERS: Family Medicine; ADMIT Family Medicine; ATTEND Family Medicine
DX: R10.12 Left upper quadrant pain (principal); K80.20 Calculus of gallbladder without cholecystitis without obstruction; R14.0 Abdominal distension (gaseous); I10 Essential (primary) hypertension; K21.9 Gastro-esophageal reflux disease without esophagitis; I25.10 Atherosclerotic heart disease of native coronary artery without angina pectoris

== ENCOUNTER → 2019-06-25 08:34 | Outpatient (CLI) | payer MEDICARE, BC ==
[2019-06-13 08:57] VITALS: BMI 28.9
[~2019-06-25 08:34] MED LIST changes: +NORVASC5 MG PO
== END | disposition home or self-care (01) ==
LOC: D.US 08:34
PROVIDERS: ATTEND Family Medicine
DX: K80.20 Calculus of gallbladder without cholecystitis without obstruction (principal)